=== PATIENT | female | born 1950 | race Caucasian/White ===

== ENCOUNTER 2023-10-27 08:09 | Day surgery (SDC) | payer MEDICARE ==
[2023-10-27] MEDS ORDERED: BUPIVACAINE 0.5% VIAL IJ ONE (08:10)
[2023-10-27] MEDS ORDERED: Depo-Medrol 40 MG/ML IM ONE (08:10)
[2023-10-27] MEDS ORDERED: DIPRIVAN 200 MG/20 ML IV ONE (11:19)
--- NOTE | 2023-10-27 12:46 | XRAY ---
Indication: Bilateral SI joint injection. Intraoperative fluoroscopy provided for 21 seconds. 6 digital spot images submitted for interpretation demonstrates posterior needle tip projecting over the expected left and right SI joint. Correlate with intraoperative findings/report.
--- NOTE | 2023-10-27 13:24 | XRAY ---
21 seconds of fluoroscopy was used in surgery for a bilateral sacroiliac joint injection.
[2023-10-27] MEDS ORDERED: Lactated Ringers 1,000 ML IV ONE (14:03)
== END 2023-10-27 11:48 | disposition home or self-care (01) ==
LOC: SDC-PAIN 08:09
PROVIDERS: ATTEND Psychiatry & Neurology Pain Medicine
DX: M46.1 Sacroiliitis, not elsewhere classified (principal); E11.9 Type 2 diabetes mellitus without complications
CPT/HCPCS: 01992; 27096; 72202; 77002; 82947; 93005; 99100; G0260; J1030; J2704

== ENCOUNTER 2023-12-29 06:55 | Day surgery (SDC) | payer MEDICARE ==
[2023-12-29] MEDS ORDERED: LIDOCAINE HCL 1% 50 MG/5 ML VL PF IJ ONE (06:56)
[2023-12-29] MEDS ORDERED: Depo-Medrol 40 MG/ML IM ONE (06:56)
[2023-12-29] MEDS ORDERED: BUPIVACAINE 0.5% VIAL IJ ONE (06:56)
[2023-12-29] MEDS ORDERED: Xopenex 1.25 MG/0.5 ML UD NEBULE IH ONE (06:56)
[2023-12-29] MEDS ORDERED: Sodium Chloride 3 ML UD NEBULES IH ONE (06:56)
[2023-12-29] MEDS ORDERED: DIPRIVAN 200 MG/20 ML IV ONE (08:08)
[2023-12-29] MEDS: Xopenex 1.25 MG/0.5 ML UD NEBULE IH ONE (09:00)
[2023-12-29] MEDS ORDERED: solu-MEDROL ONE (09:09)
[2023-12-29 09:49] VITALS: PULSE 77; RESP 18; O2SAT 96
[2023-12-29] MEDS ORDERED: Lactated Ringers 1,000 ML IV ONE (10:54)
--- NOTE | 2023-12-29 11:35 | XRAY ---
Indication: Right L4-S1 RFA. Intraoperative fluoroscopy provided for 18 seconds. 4 digital spot image submitted for interpretation demonstrates posterior needle tips projecting over the expected right L4-S1 nerve roots. Correlate with intraoperative findings/report.
--- NOTE | 2023-12-29 13:07 | XRAY ---
18 seconds of fluoroscopy was used in surgery for a right L4-S1 RFA.
== END 2023-12-29 09:38 | disposition home or self-care (01) ==
LOC: SDC-PAIN 06:55
PROVIDERS: ATTEND Psychiatry & Neurology Pain Medicine
DX: M47.816 Spondylosis without myelopathy or radiculopathy, lumbar region (principal); E11.9 Type 2 diabetes mellitus without complications
CPT/HCPCS: 64635; 64636; 72100; 77002; 82947; 94640; 99100; J1030; J2001; J2704; J2930; A9270-GY

== ENCOUNTER 2024-01-12 06:58 | Day surgery (SDC) | payer MEDICARE ==
[2024-01-12] MEDS ORDERED: BUPIVACAINE 0.5% VIAL IJ ONE (06:59)
[2024-01-12] MEDS ORDERED: Depo-Medrol 40 MG/ML IM ONE (06:59)
[2024-01-12] MEDS ORDERED: LIDOCAINE HCL 1% 50 MG/5 ML VL PF IJ ONE (06:59)
[2024-01-12] MEDS: DUONEB 0.5-3 MG/3 ml Neb IH ONE (08:01)
[2024-01-12 08:04] VITALS: PULSE 97; RESP 16; O2SAT 94
[2024-01-12] MEDS ORDERED: DIPRIVAN 200 MG/20 ML IV ONE (09:06)
--- NOTE | 2024-01-12 10:15 | XRAY ---
Indication: Left L4-S1 RFA. Intraoperative fluoroscopy provided for 20 seconds. 3 digital spot image submitted for interpretation demonstrates posterior needle tips projecting over the expected left L4-S1 nerve roots. Correlate with intraoperative findings/report.
--- NOTE | 2024-01-12 10:21 | XRAY ---
20 seconds of fluoroscopy was used in surgery for a left L4-S1 RFA.
[2024-01-12] MEDS ORDERED: Lactated Ringers 1,000 ML IV ONE (11:40)
== END 2024-01-12 09:25 | disposition home or self-care (01) ==
LOC: SDC-PAIN 06:58
PROVIDERS: ATTEND Psychiatry & Neurology Pain Medicine
DX: M47.816 Spondylosis without myelopathy or radiculopathy, lumbar region (principal); E11.9 Type 2 diabetes mellitus without complications
CPT/HCPCS: 64635; 64636; 72100; 77002; 82947; 94640; 99100; J1010; J2001; J2704; A9270-GY; J1030